=== PATIENT | female | born 1965 | race Caucasian/White ===

== ENCOUNTER 2020-09-30 17:30 | Observation (INO) ==
[2020-09-30] MEDS ORDERED: EPINEPHrine 1 MG/ML VIAL ONE ×2 (17:36→17:37)
[2020-09-30] MEDS ORDERED: Albuterol 2.5 MG/3 ML NEBULIZER ONE (17:36)
[2020-09-30] MEDS ORDERED: D5% in Water 250 ML ONE (17:36)
[2020-09-30] MEDS ORDERED: methylPREDNISolone 125 MG/2 ML VIAL ONE (17:36)
[2020-09-30] MEDS ORDERED: Ondansetron 4 MG/2 ML VIAL ONE (17:38)
[2020-09-30] MEDS ORDERED: Albuterol 2.5 MG/3 ML NEBULIZER IH ONE (17:45)
[2020-09-30] MEDS ORDERED: 0.9 % Sodium Chloride 1,000 ML ONE (17:45)
[2020-09-30] MEDS ORDERED: methylPREDNISolone 125 MG/2 ML VIAL IVP ONE (17:58)
[2020-09-30] MEDS ORDERED: EPINEPHrine 1 MG/ML VIAL IM ONE (17:58)
[2020-09-30] MEDS ORDERED: 0.9 % Sodium Chloride 1,000 ML IVC ONE (17:58)
[2020-09-30] MEDS ORDERED: EPINEPHrine 1 MG in D5% in Water 250 ML IVC SCH (18:00)
[2020-09-30 18:10] LABS: Basophils % 0.2 %; Eosinophils % 0.1 %; Hematocrit 47.9 % (35.3-44.9); Hemoglobin 16.3 g/dL (11.5-15.4); Immature Granulocytes % 0.6 % (0-4); Lymphocytes # 1.5 K/mcL (0.6-4.6); Lymphocytes % 12.3 %; Mean Corpuscular Hemoglobin 31.3 pg (28.0-33.3); Mean Corpuscular Volume 91.9 fL (83.0-100.0); Mean Platelet Volume 10.9 fL (9.4-12.4); Monocytes # 0.4 K/mcL (0.0-1.3); Monocytes % 3.4 %; Neutrophils # 10.2 K/mcL (1.6-8.9); Platelet Count 238 K/mcL (140-400); Red Blood Count 5.21 M/mcL (3.82-4.97); Red Cell Distribution Width 13.3 % (11.5-14.5); Segmented Neutrophils % 83.4 %; White Blood Count 12.2 K/mcL (4.3-11.1)
[2020-09-30] MEDS ORDERED: DiphenhydraMINE CREAM 28.4 GM TUBE TP STA (18:27)
[2020-09-30 18:29] LABS: BUN/Creatinine Ratio 21 (6-26); Blood Urea Nitrogen 21 mg/dL (6-20); Calcium 9.4 mg/dL (8.6-10.3); Carbon Dioxide 21 mEq/L (23-29); Chloride 93 mEq/L (98-107); Glucose 276 mg/dL (70-105); Osmolality,Calculated 285 (280-300); Potassium 3.9 mEq/L (3.5-5.1); Sodium 131 mEq/L (136-145); Troponin I < 0.03 ng/mL (< 0.04); eGFR For African Americans > 60 (> 60); eGFR For Non-African Americans 57 (> 60)
[2020-09-30] MEDS ORDERED: Naloxone 0.4 MG/ML INJ IVP PRN (20:38)
[2020-09-30] MEDS ORDERED: Acetaminophen 325 MG TABLET PO PRN (20:38)
[2020-09-30] MEDS ORDERED: Ondansetron 4 MG/2 ML VIAL IVP PRN (20:38)
[2020-09-30] MEDS ORDERED: *HR* Dextrose 50 % in Water (Vial) 50 ML VIAL IVP PRN (20:47)
[2020-09-30] MEDS ORDERED: Dextrose Gel 15 GM/37.5 ML TUBE PO PRN ×2 (20:47)
[2020-09-30] MEDS ORDERED: D5% in Water 1,000 ML IVC PRN (20:47)
[2020-09-30] MEDS ORDERED: Azithromycin 500 MG in 0.9 % Sodium Chloride 250 ML IVPB SCH (21:00)
[2020-10-01] MEDS: Ipratropium/Albuterol Neb 3 ML IH SCH ×3 (00:57→10:38)
[2020-10-01] MEDS: Budesonide/Formoterol 160/4.5 1 PUFF INH IH SCH ×2 (00:58→10:37)
[2020-10-01 01:30] LABS: ABG Base Excess -4 mEq/L (-2 to 3); ABG HCO3 22 mEq/L (21-27); ABG Oxygen Saturation 94 % (95-98); ABG PCO2 44 mmHg (35-45); ABG PH 7.31 pH Units (7.32-7.45); ABG PO2 75 mmHg (85-104); ABG TCO2 24 mEq/L (20-26)
[2020-10-01] MEDS ORDERED: 0.9 % Sodium Chloride 1,000 ML IVC SCH (02:00)
[2020-10-01] MEDS: Pantoprazole 40 MG VIAL IVP SCH ×2 (03:13→10:42)
[2020-10-01] MEDS: Insulin LISPRO 300 UNITS/3 ML VIAL SUBQ SCH ×2 (03:13→10:36)
[2020-10-01] MEDS: MethylPREDNISolone 40 MG/ML VIAL IVP SCH ×2 (03:14→05:40)
[2020-10-01] MEDS: *HR* Heparin 5,000 UNIT/ML VIAL SQ SCH ×2 (03:14→05:38)
[2020-10-01] MEDS ORDERED: Famotidine 20 MG/2 ML VIAL IVP SCH (03:30)
[2020-10-01 04:37] LABS: Hematocrit 40.3 % (35.3-44.9); Hemoglobin 13.4 g/dL (11.5-15.4); Mean Corpuscular HGB Conc 33.3 g/dL (31.6-35.5); Mean Corpuscular Volume 93.3 fL (83.0-100.0); Mean Platelet Volume 10.5 fL (9.4-12.4); Platelet Count 156 K/mcL (140-400); Red Blood Count 4.32 M/mcL (3.82-4.97); Red Cell Distribution Width 13.6 % (11.5-14.5); White Blood Count 10.9 K/mcL (4.3-11.1)
[2020-10-01 04:53] LABS: BUN/Creatinine Ratio 23 (6-26); Blood Urea Nitrogen 13 mg/dL (6-20); Calcium 8.7 mg/dL (8.6-10.3); Carbon Dioxide 24 mEq/L (23-29); Chloride 105 mEq/L (98-107); Glucose 142 mg/dL (70-105); Magnesium 2.1 mg/dL (1.6-2.6); Osmolality,Calculated 285 (280-300); Phosphorous 3.7 mg/dL (2.7-4.5); Potassium 4.7 mEq/L (3.5-5.1); Sodium 136 mEq/L (136-145); eGFR For African Americans > 60 (> 60); eGFR For Non-African Americans > 60 (> 60)
[2020-10-01] MEDS ORDERED: hydroCHLOROthiazide 25 MG TABLET PO SCH (09:00)
[2020-10-01] MEDS ORDERED: Tiotropium 10 INH DOSE IH SCH (10:00)
[2020-10-01 12:09] VITALS: BP 142/86
== END 2020-10-01 12:38 | disposition home or self-care (01) ==
LOC: 2ANU 17:30 → EMEROOARM 17:30 → SUATTDRO 10-01 01:45 → 2ANU 10-01 02:48
PROVIDERS: ADMIT Family Medicine; ATTEND Internal Medicine